=== PATIENT | female | born 1950 | race Caucasian/White ===

== ENCOUNTER 2023-09-22 11:23 | Emergency (ER) | payer MEDICARE, OTHER, SELFPAY ==
[2023-09-22] VITALS (12 sets, daily range): BP systolic 118–163; BP diastolic 57–80; PULSE 51–63; RESP 17; TEMP 36.7; O2SAT 94–99; BMI 30.7
--- NOTE | 2023-09-22 14:29 | ED.FEMALEGU ---
HPI - Female Genitourinary General Chief complaint: Vaginal Bleeding Stated complaint: vaginal bleeding after fall incident t-2 Time Seen by Provider: 09/22/23 14:29 Source: patient Mode of arrival: Ambulatory History of Present Illness HPI Narrative: 73-year-old female who denies blood thinner medication use, had a ground level fall on for which she was evaluated at [facility] emergency department, recalls imaging of her brain and face, told she has a nose fracture, no known facial fracture, no brain injuries, the following day Friday she noticed that she started having some vaginal spotting, worse on Friday, some continued intermittent spotting when she has an upright position over the weekend, including today. No dizziness. She has not soaked or saturated pads. No fevers or chills. No abdominal discomfort. No history of known uterine cancer or cervical cancer, no pelvic injuries known. Related Data Allergies Allergy/AdvReac Type Severity Reaction Status Date / Time No Known Drug Allergies Allergy Verified 09/22/23 11:49 Review of Systems Review of Systems Narrative: as per HPI Patient History Substance Use Type: does not use Exam Narrative Exam Narrative: GENERAL: Well-developed patient, in mild distress. HEAD: Atraumatic. Normocephalic. EYES: Pupils equal round and reactive. Extraocular motions intact. No scleral icterus. No injection or drainage. Raccoon eyes periorbital ecchymoses noted, patient says it is improving from her fall evaluation , when she had significant swelling of both eyes ENT: Nose without bleeding, purulent drainage. Throat without erythema, tonsillar hypertrophy or exudate. Airway patent. Some tenderness over the midline nose which does not appear grossly deviated, no blood alae NECK: Trachea midline. Non tender CARDIOVASCULAR: Regular rate and rhythm without murmurs, gallops, or rubs. RESPIRATORY: Clear to auscultation. Breath sounds equal bilaterally. No wheezes, rales, or rhonchi. No anterior abdominal tenderness, no ecchymoses GASTROINTESTINAL: Abdomen soft, non-tender, nondistended. EXTREMITIES: No edema or joint tenderness. BACK: Nontender without deformity or crepitance. No flank tenderness. NEURO: AOx3. SKIN: No rash or erythema of visible areas Initial Vital Signs Initial Vital Signs: Vital Signs Temperature 98.0 F 09/22/23 11:49 Pulse Rate 55 L 09/22/23 11:49 Respiratory Rate 17 09/22/23 11:49 Blood Pressure 130/63 09/22/23 11:49 Pulse Oximetry 95 09/22/23 11:49 Oxygen Delivery Method Room Air 09/22/23 11:49 Course Orders Ordered: ED Orders 09/22/23 14:31 US pelvic complete Stat 09/22/23 15:30 CBC Auto Diff [Complete Blood Count AUTO DIFF] Stat CMP [Comprehensive Metabolic Panel] Stat Prothrombin Time INR Stat Type and Screen Stat Discontinued Medications Sodium Chloride (Normal Saline 0.9%) 1,000 mls @ 1,000 mls/hr IV BOLUS ONE Stop: 09/22/23 15:29 Last Infusion: 09/22/23 16:46 Dose: Infused Documented By: Admin: 09/22/23 15:40 Dose: 1,000 mls/hr Documented By: FANY Morphine Sulfate (Morphine 4 Mg/Ml Inj) 4 mg IV NOW ONE Stop: 09/22/23 15:35 Last Admin: 09/22/23 15:41 Dose: 4 mg Documented By: FANY Ondansetron HCl (Ondansetron 4 Mg/2 Ml Inj) 4 mg IV NOW ONE Stop: 09/22/23 15:36 Last Admin: 09/22/23 15:41 Dose: 4 mg Documented By: FANY Vital Signs Vital signs: Vital Signs - 8 hr 09/22/23 14:30 09/22/23 14:31 09/22/23 14:31 Pulse Rate 58 L 54 L Blood Pressure 118/57 L Pulse Oximetry 94 95 09/22/23 16:42 09/22/23 16:42 09/22/23 16:51 Pulse Rate 51 L Blood Pressure 136/65 163/72 H Pulse Oximetry 99 09/22/23 16:51 09/22/23 17:00 09/22/23 17:01 Pulse Rate 57 L Blood Pressure 133/64 Pulse Oximetry 98 98 09/22/23 17:01 09/22/23 17:30 09/22/23 17:30 Pulse Rate 52 L 59 L Blood Pressure 150/80 H Pulse Oximetry 99 99 09/22/23 18:00 09/22/23 18:00 09/22/23 18:30 Pulse Rate 57 L Blood Pressure 137/65 138/66 Pulse Oximetry 95 09/22/23 18:30 Pulse Rate 58 L Blood Pressure Pulse Oximetry 97 MDM - Female Genitourinary Lab Data 09/22/23 15:30 09/22/23 15:30 Labs: Lab Results 09/22/23 Range/Units 15:30 WBC 6.9 (4.5-11.0) X10^3/uL RBC 4.09 (4.0-5.2) X10^6/uL Hgb 12.3 (12.0-16.0) g/dL Hct 36.4 (36-46) % MCV 89.1 (80-100) fL MCH 30.1 (26-34) PG MCHC 33.8 (30-36) % RDW 13.5 (11.6-14.8) % Plt Count 246 (150-400) X10^3/uL Neut % (Auto) 50.3 (50-75) % Lymph % (Auto) 39.1 (25-40) % [place] % (Auto) 7.7 (3-14) % Eos % (Auto) 2.1 (2-4) % Baso % (Auto) 0.8 (0-2) % Neut # (Auto) 3500 (0669-9600) /uL Lymph # (Auto) 2700 (7598-9169) /uL [place] # (Auto) 500 (0-900) /uL Eos # (Auto) 100 (0-450) /uL Baso # (Auto) 100 (0-100) /uL PT 10.8 (9.4-12.5) SECONDS INR 0.9 (0.9-1.3) Sodium 136 L (137-145) mmol/L Potassium 4.0 (3.4-5.1) mmol/L Chloride 107 (98-107) mmol/L Carbon Dioxide 26 (22-32) mmol/L BUN 13 (7-17) mg/dL Creatinine 0.97 (0.52-1.04) mg/dL Estimated GFR > 60 (>60) mL/min BUN/Creatinine Ratio 13.4 (6-22) Glucose 88 (80-110) mg/dL Calcium 8.5 (8.4-10.2) mg/dL Total Bilirubin 0.3 (0.2-1.3) mg/dL AST 23 (14-36) IU/L ALT 15 (<35) IU/L Alkaline Phosphatase 47 (38-126) U/L Total Protein 6.5 (6.3-8.2) g/dL Albumin 4.0 (3.5-5.0) g/dL Globulin 2.5 (1.7-4.1) g/dL Albumin/Globulin Ratio 1.6 (1.0-2.8) Blood Type O Positive Antibody Screen Negative Imaging Data Pelvic US: Radiologist's Impression: [address] [address] Ultrasound Report Signed Patient: Polly Rios MR#: [id number] : 1950 Acct:[id number] Age/Sex: 73 / F Date of Service: 09/22/23 Loc: ED Accession Number: [id number] Procedure: US pelvic complete Ordering Provider: Ethan Shaw MD PROCEDURE: US PELVIC COMPLETE INDICATIONS: postmeno vag bleeding TECHNIQUE: Real-time scanning was performed of the pelvic organs, with image documentation. Additional endovaginal scanning was necessary due to incomplete visualization of the adnexal and endometrial structures by transabdominal scanning. COMPARISON: None. FINDINGS: Uterus: Uterus is anteverted and normal in size at 6.5 x 5.4 x 2 9 cm. The myometrium is homogeneous. The endometrium measures 4 mm combined thickness. Within the endometrial cavity, there is a irregular, lobulated isoechoic mass with internal vascularity measuring 2.1 x 2.9 x 1 1 cm. There is also fluid distending the endometrial cavity. Ovaries: Ovaries and adnexa were not well visualized secondary to overlying bowel gas. Other: No pathologic free abdominal or pelvic fluid. IMPRESSION: Irregular, lobulated vascular mass within the endometrial cavity measuring up to 2.9 cm in size may represent a polyp or other possible mass. In this patient with postmenopausal bleeding, recommend further evaluation with gynecological consultation for endometrial biopsy. We strive to produce accurate, complete, and clear reports of imaging services. To assist us in improving patient care, this report was composed using standard report templates and voice recognition software. Therefore, it may contain abnormal punctuation, insertions and/or omissions. Occasional wrong-word or sound-alike substitutions may occur. Though we review the report and make efforts to correct it, we do recommend that the report be read carefully in proper context to recognize any text inaccuracies. Dictated by: Jose Mota M.D. on 09/22/2023 at 15:49 Approved by: Jose Mota M.D. on 09/22/2023 at 15:53 [facility] Narrative Medical decision making narrative: 73-year-old female with recent fall and facial injuries, no blood thinner medications, now day 4 of intermittent vaginal spotting worsen upright position, not soaking pads, no dizziness or weakness. We will attempt to obtain [facility] records for recent baseline hemoglobin at their facility. Abdomen pelvis transabdominal exam benign, postmenopausal bleeding unclear relationship to recent fall/trauma. Afebrile, sirs screen negative. We will send labs including hemoglobin and INR, check platelets. We will hold on pelvic/abdominal imaging for now, accept for pelvic ultrasound to evaluate endometrial wall in presence of any leiomyomata or other changes that might be associated with bleeding. Hemoglobin 12.3, platelets adequate, white blood cell count not increased, INR normal. Ultrasound pelvis results pending, tech believes that there is an endometrial polyp with fluid-filled endometrial cavity, await final report. Pelvic ultrasound shows irregular lobulated vascular mass within the endometrial cavity measuring 2.9 cm, possible polyp versus other mass. See radiologist's report. [id number], case discussed with Gynecology on-call Dr. Oneal, who took patient information, we will contact patient, likely endometrial biopsy to be scheduled Friday or Friday and their office. Report print out given to patient with follow up instructions with Dr. Oneal, contact office information also for Dr Oneal Critical Care Time Critical Care Time Critical Care Time: Yes Total Critical Care Time: 31 Attestation: The high probability of a clinically significant, sudden or life threatening deterioration of the [genitourinary] system(s) required my full and direct attention, intervention and personal management. The aggregate critical care time was [] minutes. This time is in addition to time spent performing reported procedures but includes the following: [x] Data Review and interpretation [x] Patient assessment and monitoring of vital signs [x] Documentation [x] Medication orders and management Discharge Plan Departure Patient Disposition: Home Clinical Impression: Post-menopausal bleeding, Endometrial mass Instructions: DI for Vaginal Bleeding Activity Restrictions/Additional Instructions: 73-year-old female with vaginal bleeding intermittent last few days, hemodynamically stable, hemoglobin not reflecting anemia at this time, ultrasound shows irregular lobulated vascular mass within the endometrial cavity of the uterus, measuring up to 2.9 cm in size, possible polyp versus other mass. Case discussed with Gynecology on-call Dr. Oneal, anticipate scheduling endometrial biopsy, your name and date of relayed to her, her office should be contacting you anticipate the procedure Friday or , to be scheduled. Consider contacting her office as well to further delineate this procedure biopsy appointment time. Continue using pads for bleeding, thus no hormonal treatment to use for postmenopausal bleeding unfortunately. Return earlier if you have significantly increased bleeding, or any change worsening symptoms or any concerns prior to your follow up scheduled plan Referrals: Maritza Oneal MD [Physician] - Stand Alone Forms: Patient Portal/API
[2023-09-22 15:40] LABS: Add Manual Diff / Slide Review NO; Basophils Absolute Auto 100 /uL (0-100); Basophils Percent Auto 0.8 % (0-2); Eosinophils Absolute Auto 100 /uL (0-450); Eosinophils Percent Auto 2.1 % (2-4); Hematocrit 36.4 % (36-46); Hemoglobin 12.3 g/dL (12.0-16.0); Lymphocytes Absolute Auto 2700 /uL (1100-4500); Lymphocytes Percent Auto 39.1 % (25-40); Mean Corpuscular HGB Conc 33.8 % (30-36); Mean Corpuscular Hemoglobin 30.1 PG (26-34); Mean Corpuscular Volume 89.1 fL (80-100); Monocytes Absolute Auto 500 /uL (0-900); Monocytes Percent Auto 7.7 % (3-14); Neutrophils Absolute Auto 3500 /uL (1500-7000); Neutrophils Percent Auto 50.3 % (50-75); Platelet Count 246 X10^3/uL (150-400); Red Blood Cell Count 4.09 X10^6/uL (4.0-5.2); Red Cell Distribution Width 13.5 % (11.6-14.8); White Blood Cell Count 6.9 X10^3/uL (4.5-11.0)
[2023-09-22] MEDS: SODIUM CHLORIDE 0.9% 1,000 ML 1000 ML IV (15:40)
[2023-09-22] MEDS: MORPHINE 4 MG/ML INJ IV (15:41)
[2023-09-22] MEDS: ONDANSETRON 4 MG/2 ML INJ IV (15:41)
[2023-09-22 15:48] LABS: INR 0.9 (0.9-1.3); Prothrombin Time 10.8 SECONDS (9.4-12.5)
[2023-09-22 15:52] LABS: Alanine Aminotransferase 15 IU/L (<35); Albumin Globulin Ratio 1.6 (1.0-2.8); Alkaline Phosphatase 47 U/L (38-126); Aspartate Aminotransferase 23 IU/L (14-36); BUN Creatinine Ratio 13.4 (6-22); Bilirubin Total 0.3 mg/dL (0.2-1.3); Blood Urea Nitrogen 13 mg/dL (7-17); Calcium 8.5 mg/dL (8.4-10.2); Carbon Dioxide 26 mmol/L (22-32); Chloride 107 mmol/L (98-107); Estimated Glomerular Filt Rate > 60 mL/min (>60); Globulin 2.5 g/dL (1.7-4.1); Glucose 88 mg/dL (80-110); HEMOLYSIS < 15 (0-50); Sodium 136 mmol/L (137-145); Total Protein 6.5 g/dL (6.3-8.2)
== END 2023-09-22 19:07 | disposition home or self-care (01) ==
PROVIDERS: Emergency Provider Emergency Medicine
DX: N95.0 Postmenopausal bleeding (principal); N85.8 Other specified noninflammatory disorders of uterus
CPT/HCPCS: 76830; 76856; 80053; 85025; 85610; 86850; 86900; 86901; 96374; 96375; 99283; 99284; J2270; J2405